=== PATIENT | male | born 1960 | race Caucasian/White ===

== ENCOUNTER 2022-11-20 03:09 | Emergency (ER) | payer OTHER ==
[2022-11-20 03:29] VITALS: BP 154/94; PULSE 89; RESP 18; TEMP 97.9; BMI 24.4
[2022-11-20] MEDS ORDERED: predniSONE 20 MG TABLET (UD) PO ONE (03:55)
[2022-11-20] MEDS ORDERED: FLUORESCEIN NA 1 EA STRIP OD ONE (03:58)
[2022-11-20] MEDS ORDERED: TETRACAINE 0.5% HCL 0.6ML DROPPER.BOTTLE OD ONE (03:59)
[2022-11-20] MEDS ORDERED: ACETAMINOPHEN 500 MG TABLET (FP) PO ONE (04:02)
[2022-11-20] MEDS ORDERED: ACETAMINOPHEN 325 MG TABLET (FP) ONE (04:05)
[2022-11-20] MEDS ORDERED: TETRACAINE 0.5% OPHTH SOLN 2 ML BOTTLE ONE (04:06)
[2022-11-20 07:54] LABS: HIV INTERPRETATION NEGATIVE (NEGATIVE)
== END 2022-11-20 06:21 | disposition home or self-care (01) ==
LOC: JER 03:09
DX: B02.21 Postherpetic geniculate ganglionitis (principal); R21 Rash and other nonspecific skin eruption
CPT/HCPCS: 36415; 87389; 99283-25